=== PATIENT | male | born 1950 | race Caucasian/White ===

== ENCOUNTER 2016-05-05 09:36 | Emergency (ER) | payer OTHER ==
[2016-05-05] MEDS ORDERED: LIDOCAINE HCL 5% OINT 35 APP/35.44 GM TUBE TOPICAL ONE (09:56)
[2016-05-05 10:22] LABS: BASOPHIL# 0.4 X 10^3uL (0.0-0.1); BASOPHILS 2.8 % (0.0-2.0); EOSINOPHILS 0.2 % (0.0-6.0); HEMATOCRIT 39.3 % (42.0-54.0); HEMOGLOBIN 13.4 g/dL (14.0-18.0); LYMPHOCYTES 12.6 % (20.0-40.0); LYMPHOCYTES# 1.7 X 10^3uL (0.8-3.8); MEAN CELL VOLUME 89.5 fL (84.0-102.0); MEAN CORPUS. HGB CONCENTRATION 34.2 g/dL (32.0-36.0); MEAN CORPUSCULAR HEMOGLOBIN 30.6 pg (29.0-35.0); MEAN PLATELET VOLUME 7.1 fL (7.4-10.4); MONOCYTES 7.7 % (2.0-10.0); NEUTROPHILS 76.7 % (54.0-75.0); NEUTROPHILS# 10.2 X 10^3uL (2.6-6.7); PLATELET COUNT 315 X 10^3uL (130-440); RED BLOOD COUNT 4.39 X 10^6uL (4.20-6.10); RED CELL DISTRIBUTION WIDTH 15.4 % (11.5-14.5); WHITE BLOOD COUNT 13.3 X 10^3uL (3.9-10.7)
[2016-05-05 10:34] LABS: A/G RATIO 1.4; ALBUMIN 3.4 g/dL (3.5-5.0); ALKALINE PHOSPHATASE 63 U/L (38-126); ALT 42 U/L (21-72); AST 23 U/L (17-59); BILIRUBIN, TOTAL 0.7 mg/dL (0.2-1.3); BLOOD UREA NITROGEN 17 mg/dL (9-20); CALCIUM 8.6 mg/dL (8.4-10.2); CHLORIDE 97 mmol/L (98-107); CREATININE 0.7 mg/dL (0.7-1.3); EST GLOMERULAR FILTRATION RATE > 60 mL/min; GLUCOSE 109 mg/dL (70-100); MAGNESIUM 1.8 mg/dL (1.6-2.3); POTASSIUM 3.4 mmol/L (3.5-5.1); SODIUM 130 mmol/L (137-145); TOTAL PROTEIN 5.9 g/dL (6.3-8.2)
[2016-05-05 10:36] LABS: ETHYL ALCOHOL < 10 mg/dL (<10)
[2016-05-05 10:45] LABS: TROPONIN I 0.016 ng/mL (0.00-0.034)
[2016-05-05] MEDS ORDERED: LEVOFLOXACIN/D5W 150 ML IV ONE (11:14)
--- NOTE | 2016-05-05 11:16 | CT REPORT ---
EXAM: CT brain without contrast. DATE: May 05, 2016. INDICATION: Acute onset in mental status change. Patient has a history of metastatic tumors to the br ain. COMPARISON: MRI dated March 06, 2016. TECHNIQUE: Contiguous scans were obtained from the vertex through the foramen magnum without contrast . FINDINGS: There is a 2 cm in diameter hypoattenuating mass centered within the white matter of the left frontal lobe. This corresponds to a rim enhancing mass that was visualized on MRI. There is been interval pr ogression of the edema within the white matter of the left frontal lobe with local mass effect. There is 4 mm of midline shift at the level of the falx. No definite subfalcine herniation. There is mild compression of the left lateral ventricle. No hydrocephalus. There is a second 1.1 cm in diameter foc us of hypoattenuation in the medial right occipital lobe which would correspond to a second contrast- enhancing mass visualized on MRI. No definite new masses are identified on this noncontrast study. The parenchymal volume is maintained. The deep white matter and basal vein matter maintained. Is no pathologic extra-axial fluid collection or intracranial hemorrhage. The configuration of the cerebellum and brainstem and jocelynn appear stable. There is no evidence of her niation. There is no skull fracture or depression. No lytic lesion. The visualized portions of the paranasal s inuses and mastoid air cells are clear. IMPRESSION: 1. Subcortical masses within the left frontal lobe and right occipital lobe which correspond to rim e nhancing masses visualized on MRI consistent with metastatic tumor. There is been interval increase i n amount of peritumoral edema in the left frontal lobe. There is 4 mm of midline shift. No evidence o f brainstem herniation. 2. No intracranial hemorrhage. Results were called to Dr. Bear at 11:15 AM. Final Electronic Signature: This report was electronically signed by Melchor Gurrola MD on 05/05/2016 11 :14 AM. [facility] /
[2016-05-05] MEDS ORDERED: DIAZEPAM 10 MG/2 ML SYR ONE (12:23)
--- NOTE | 2016-05-05 12:34 | RADIOLOGY REPORT ---
HISTORY: History of lung cancer. History of metastatic disease. Altered mental status. COMPARISON: Chest CT dated April 29, 2016 and chest x-ray dated September 20, 2012 FINDINGS: Single, portable semiupright view of the chest was obtained. There is left thoracic volume loss. Th ere is confluent opacification of the left thorax with more focal consolidation at the base. This michell ears similar to the commissioning specialist film from recent CT. The right lung is adequately aerated and clear. The c ardiomediastinal silhouette appears stable in configuration. There is shift of the heart and mediasti nal structures into the left thorax. There is generalized osteopenia. HEALED fracture the mid body of the left clavicle is again noted. IMPRESSION: 1. Persistent consolidation of the left lung most marked in the lung base similar to April 29 7. 2. Right lung remains adequately aerated and clear. 3. Heart and mediastinal structures are stable in configuration with persistent shift to the left tho rax. Final Electronic Signature: This report was electronically signed by Melchor Gurrola MD on 05/05/2016 12 :32 PM. [facility] /
--- NOTE | 2016-05-05 13:04 | ER NURSING DOCUMENTATION ---
Nurse's Notes [facility] Name:Presley Borja Age:65 yrs Sex:Male :1950 Arrival Date:05/05/2016 Time:09:36 BedRadiology Private MD:Mika Streeter Diagnosis:Fall Presentation: 05/05 09:38 Acuity: ASMITA 2 tg 10:16 Presenting complaint: EMS states: Per EMS, pt was on the phone with friends, when he tg abruptly stopped talking with a crash sound. Pt apparently fell at home. EMS reports that pt was uncooperative and not fully alert for transport. Transition of care: patient was not received from another setting of care. 10:16 Method Of Arrival: EMS: 410 tg Triage Assessment: 09:40 General: Appears uncomfortable, Behavior is agitated, cooperative. Pain: Complains of tg pain in right arm and left arm. Neuro: Level of Consciousness is awake, alert, Speech is normal, Facial symmetry appears normal. Cardiovascular: Capillary refill < 3 seconds. Respiratory: Respiratory effort is even, unlabored. Derm: Skin is pink, warm & dry. Injury Description: Skin tear Skin tear on left and right elbow and left forearm. Historical: - Allergies: No known drug Allergies; adhesive sensitivity; - Home Meds: 1. atorvastatin oral 2. Dexamethasone Oral 3. Fluoxetine Oral 4. Hydrochlorothiazide Oral 5. Keppra Oral 6. losartan oral 7. metoprolol succinate oral 8. Omeprazole Oral - PMHx: Cerebrovascular Accident (CVA) - : Probable Brain Mass from Lung Cancr Metastasis, Right Parietal Region(August 20, 2014); Lung Mass - / Cancer: May 2013: Resected (August 20, 2014); HYPERTENSION (August 20, 2014); Generalized Seizure (August 28, 2014); - PSHx: Brain surgery; Left lung removal; - Tetanus: unknown. - Ebola Screening: : Patient negative for fever greater than or equal to 101.5 degrees Fahrenheit, and additional compatible Ebola Virus Disease symptoms. Patient denies exposure to infectious person. Patient denies travel to an Ebola-affected area in the 21 days before illness onset. No symptoms or risks identified at this time. . - Immunization history: Flu Vaccine >1 year. - Social history: Smoking status: Patient states former smoker of tobacco. - History obtained from: [facility]. Screenin:31 Infectious Disease Risk Unable to Obtain. Abuse screen: Denies threats or abuse. Denies tg injuries from another. Nutritional screening: No deficits noted. Assessment: 10:36 Reassessment: Patient states symptoms have improved. Pt's demeanor improving. Alert, tg awake, cooperative at this time. . 11:19 Reassessment: Pt denies ability or urge to void at this time. . tg 12:20 Reassessment: 1220. Pt wanted to discuss need for transfer with Dr. Bear. Pt then tg began stuttering, then went unresponsive and had a seizure. Seizure lasted 2-3 minutes. Pt now awake, eyes open, turning head to look at me, but not responding verbally. . 12:54 Reassessment: During seizure, pt's IV was secured with adhesive tape. . tg Vital Signs: 09:37 BP 133 / 84; Pulse 79; Resp 20; Pulse Ox 92% on R/A; Pain 4/10; tg 10:35 Temp 99(TE); tg ED Course: 09:36 Patient arrived in ED. ds 09:36 Mika Streeter MD is Private Physician. ds 09:38 Triage completed. tg 09:43 Joshua Bear MD is Attending Physician. tl1 10:14 Hawk Davis, AUBREY is Primary Nurse. tg 10:15 Inserted peripheral IV: 22 gauge in right antecubital area and blood collected. Pt tg refuses any tape or adhesive to secure hi IV. insists on coban with tape overtop coban. Pt concerned about fragile skin tearing from adhesive. Pt educated on use of adhesive remover, and it was demonstrated to work on his skin. Pt still refuses to have IV secured with tape. Pt verbalized understanding that IV is likely to become dislodged without proper adhesive securement. 10:31 Arm band placed on Bed in low position Call Light in Reach Gowned HOB Elevated Side tg rails up x2. 10:31 Valuables Remains with patient. tg 12:41 Placed nasal trumpet 32 Fr via right nares. kr 12:43 Wound care to skin tears, cleaned, dressed with bacitracin, oil emulsion, and gauze tg wrap. 14:17 Other attached tg Administered Medications: 10:00 Drug: Lidocaine Ointment (5%) 1 application; Route: Topical; Site: wound; tg 11:11 Drug: D5W 150 ml, Levaquin 750 mg; Route: IVPB; Infused Over: 90 mins; Site: right tg antecubital; Delivery: Pump; 12:37 Follow up: IV Status: Completed infusion; IV Intake: 150ml tg 12:23 Drug: Valium 10 mg; Route: IVP; Site: right antecubital; tg 12:50 Follow up: Response: Anxiety decreased tg 12:42 CANCELLED (Physician Discretion): Zosyn - Piperacillin-Tazobactam 4.5 grams IVPB once tg Intake: 12:37 IV: 150ml; Total: 150ml. tg Outcome: 11:56 ER care complete, transfer ordered by MD. dominguez 12:53 Transferred: Patient will be transferred to: [facility]. Facility tg Acceptance Time: May 05, 2016 at 12:00 Patient's face sheet was faxed to accepting facility. Face Sheet included patient's name, address, age, gender, contact information and insurance information. Patient will be transported by: [facility] ground. Nurse and Physician Charting and Notes were sent to Accepting Facility. All tests and/or procedures with results, if applicable, were sent to accepting facility. 12:53 Condition: unchanged 12:53 Discharge Assessment: Patient awake, confused. 12:53 Instructed on need for transfer 13:03 Patient left the ED. lpr 13:07 Transferred: Report called to: AUBREY Valenzuela in ED tg Signatures: Hawk Davis RN RN tg Srot, Linette, Reg Reg ds Shavon Carlton RN RN Joshua Bryant MD MD tl1 Krysten Tabor
--- NOTE | 2016-05-05 13:04 | ER PHYSICIAN DOCUMENTATION ---
Physician Documentation [facility] Name:Presley Borja Age:65 yrs Sex:Male :1950 Arrival Date:05/05/2016 Time:09:36 BedRadiology Private MD:Mika Streeter ED, Tom Disposition: 05/05 14:00 Chart complete. tl1 Disposition: 05/05/16 11:56 Transfer ordered to . Diagnosis is Fall. - Reason for transfer: Specialty. - Accepting physician is Harjit Caban. - Condition is Fair. - Problem is an acute exacerbation. - Symptoms have improved. COBRA Form completed? Yes Transfer - Mode of Transportation Ambulance HPI: 09:36 This 65 yrs old Male presents to ER with complaints of Fall Injury. tl1 10:41 He has lung CA with mets to the brain which are progressing despite recent XRT. . tl1 10:41 Details of fall: The patient fell from an upright position. Onset: The tl1 symptom(s)/episode began/occurred suddenly, just prior to arrival. 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 They immediately came to his home and found him on the ground with a decreased level of consciousness and called EMS. On arrival, they found him with a post-ictal appearance and transported him here. Patient is unable to contribute meaningfully to the history.. Historical: - Allergies: No known drug Allergies; adhesive sensitivity; - Home Meds: 1. atorvastatin oral 2. Dexamethasone Oral 3. Fluoxetine Oral 4. Hydrochlorothiazide Oral 5. Keppra Oral 6. losartan oral 7. metoprolol succinate oral 8. Omeprazole Oral - PMHx: Cerebrovascular Accident (CVA) - : Probable Brain Mass from Lung Cancr Metastasis, Right Parietal Region(August 20, 2014); Lung Mass - / Cancer: May 2013: Resected (August 20, 2014); HYPERTENSION (August 20, 2014); Generalized Seizure (August 28, 2014); - PSHx: Brain surgery; Left lung removal; - Tetanus: unknown. - Ebola Screening: : Patient negative for fever greater than or equal to 101.5 degrees Fahrenheit, and additional compatible Ebola Virus Disease symptoms. Patient denies exposure to infectious person. Patient denies travel to an Ebola-affected area in the 21 days before illness onset. No symptoms or risks identified at this time. . - Immunization history: Flu Vaccine >1 year. - Social history: Smoking status: Patient states former smoker of tobacco. - History obtained from: Hx from patient and [facility] records. ROS: 10:41 MS/extremity: Positive for Skin tears to both elbows and left wrist. tl1 10:41 Unable to obtain ROS due to patient's inability to understand questions, patient being uncooperative. Exam: 10:41 Constitutional: The patient appears alert, awake, anxious, in obvious distress, mildly tl1 distressed, restless. 10:41 Head/face: Exam is negative for acute changes. 10:41 Eyes: Periorbital structures: appear normal, Pupils: equal, round, and reactive to light and accomodation, Conjunctiva: no acute changes, Sclera: icterus, is not appreciated. 10:41 ENT: External ear(s): are unremarkable, Ear canal(s): are normal, Mouth: no acute changes, Posterior pharynx: no acute changes. 10:41 Neck: External neck: is normal, C-spine: vertebral tenderness, is not appreciated, Trachea: is midline with no obvious abnormalities. 10:41 Chest/axilla: Inspection: normal, Palpation: tenderness, is not appreciated. 10:41 Cardiovascular: Rate: normal, Rhythm: regular, Heart sounds: normal, Edema: is not appreciated, JVD: is not appreciated. 10:41 Respiratory: the patient does not display signs of respiratory distress, Respirations: normal, Breath sounds: are normal. 10:41 Abdomen/GI: Inspection: abdomen appears normal, Palpation: abdomen is soft and non-tender. 10:41 : CVA tenderness, is absent. 10:41 Musculoskeletal/extremity: Extremities: skin tears bilateral elbow and left wrist.. 10:41 Skin: Appearance: normal except for affected area. 10:41 Neuro: Orientation: to person, place & time. Mentation: slow to respond, Cranial nerves: grossly normal, Motor: moves all fours, strength is 5/5 in all extremities, Gait: not tested. seizure activity, grand mal type is displayed. Vital Signs: 09:37 BP 133 / 84; Pulse 79; Resp 20; Pulse Ox 92% on R/A; Pain 4/10; tg 10:35 Temp 99(TE); tg MDM: 09:43 Patient medically screened. tl1 11:40 ED course: His mental status initially improved and he was cooperative and tl1 hemodynamically stable. He did have a seizure which was treated with valium, as ativan was unavailable, apparently due to a shortage. He had no further seizures and was stable throughout the rest of his ED stay. He was provided with 10 mg of IV decadron, as there seems to be significantly more edema than that seen on his last MRI, about 12 days ago. I spoke with his father and his daughter about the fact that he appears to be getting rapidly worse, and recommended consideration of appointing someone with POA capacity for healthcare decisions.. 12:00 Differential diagnosis: closed head injury, contusion, seizure, syncope, CVA. Data tl1 reviewed: vital signs, nurses notes, lab test result(s), EKG, radiologic studies, CT scan, and as a result, I will *Transfer Patient. Data interpreted: environmental monitoring technician: Pulse oximetry:. Test interpretation: by ED physician or midlevel provider: plain radiologic studies. Counseling: I had a detailed discussion with the patient and/or guardian regarding: the historical points, exam findings, and any diagnostic results supporting the discharge/admit diagnosis, lab results, radiology results, the need to transfer to another facility. Medication response: The patient's symptoms have improved. Response to treatment: the patient's symptoms have mildly improved after treatment. Physician consultation: ED Physicain was called at 14:00, was contacted at 14:05, regarding patient's condition, after a discussion of the case, a recommendation for transfer for higher level of care is made. 14:17 Other attached 05/05 10:34 Order name: LACTATE; Complete Time: EDIN 05/05 10:36 Order name: CBC AUTO DIF, MDIF/RMOR IF IND; Complete Time: EDIN 05/05 10:37 Order name: COMPREHENSIVE METABOLIC PANEL; Complete Time: EDIN 05/05 10:37 Order name: MAGNESIUM; Complete Time: EDIN 05/05 10:37 Order name: ETHYL ALCOHOL; Complete Time: EDIN 05/05 10:46 Order name: TROPONIN I; Complete Time: EDIN 05/05 11:18 Order name: CAT SCAN; HEAD W/O CON [id number]; Complete Time: :31 EDMS 02 12:35 Order name: CHEST; SINGLE VIEW [id number]; Complete Time: 22:13 EDMS Dispensed Medications: 10:00 Drug: Lidocaine Ointment (5%) 1 application; Route: Topical; Site: wound; tg 11:11 Drug: D5W 150 ml, Levaquin 750 mg; Route: IVPB; Infused Over: 90 mins; Site: right tg antecubital; Delivery: Pump; 12:37 Follow up: IV Status: Completed infusion; IV Intake: 150ml tg 12:23 Drug: Valium 10 mg; Route: IVP; Site: right antecubital; tg 12:50 Follow up: Response: Anxiety decreased tg 12:42 CANCELLED (Physician Discretion): Zosyn - Piperacillin-Tazobactam 4.5 grams IVPB once tg Signatures: Hawk Davis RN RN tg Shavon Carlton RN RN lpr Joshua Bear MD MD tl1
== END 2016-05-05 13:04 | disposition short-term general hospital (02) ==
LOC: ER 09:36
DX: S51.011A Laceration without foreign body of right elbow, initial encounter (principal); S51.012A Laceration without foreign body of left elbow, initial encounter; S61.512A Laceration without foreign body of left wrist, initial encounter; R56.9 Unspecified convulsions; R41.89 Other symptoms and signs involving cognitive functions and awareness; R60.9 Edema, unspecified; W19.XXXA Unspecified fall, initial encounter; Y92.019 Unspecified place in single-family (private) house as the place of occurrence of the external cause; C34.90 Malignant neoplasm of unspecified part of unspecified bronchus or lung; C79.31 Secondary malignant neoplasm of brain; Z90.2 Acquired absence of lung [part of]; Z98.890 Other specified postprocedural states; Z79.899 Other long term (current) drug therapy; Z99.89 Dependence on other enabling machines and devices; Z74.3 Need for continuous supervision
CPT/HCPCS: 70450; 71010; 80053; 80320; 83605; 83735; 84484; 85025; 96365; 96375; 99285; A0425; A0427; J1956; J3360